=== PATIENT | female | born 1985 | race Caucasian/White ===

== ENCOUNTER 2016-07-31 20:10 | Emergency (ER) ==
[2016-07-31 20:19] VITALS: BP 167/82; TEMP 100.6; BMI 45.8
[2016-07-31 20:36] LABS: FLU INTERNAL QC INTERNAL QC VALID; RAPID FLU A NEGATIVE (NEGATIVE); RAPID FLU B NEGATIVE (NEGATIVE)
--- NOTE | 2016-07-31 20:58 | ED.PDOC ---
General ED Provider: Dr. SALINAS PASCUAL-ER Chief Complaint: Cough Stated Complaint: im coughing and my ears hurt Time Seen by Physician: 20:15 Mode of Arrival: Walk-In Information Source: Patient Exam Limitations: No limitations Primary Care Provider: VIN BARBER Nursing and Triage Documentation Reviewed and Agree: Yes Respiratory Complaint Exam - Respiratory Complaint/Exam Onset/Duration: 3 days Symptoms Are: Still present Timing: Intermittent Initial Severity: Mild Current Severity: Mild Location: Nose, Chest Character: Reports: Non-productive cough Aggravating: Reports: URI Alleviating: Reports: None Associated Signs and Symptoms: Reports: Fever, URI, Nasal congestion. Denies: Rapid breathing, Dyspnea, Chills, Chest pain, Pleuritic chest pain, Wheezing, Hemoptysis, Dizziness, Calf pain, Calf swelling, Edema, Hoarseness, Sinus discomfort, Vomiting, Sore throat, Weight loss, Decreased oral intake, Increased thirst, Increased appetite, Increased urination History of Healthcare-Acquired Pneumonia: No Related Surgical History: Reports: None Pulmonary Embolism Risk Factors: None Cardiac Risk Factors: Reports: None Pseudomonas Risk Factors: Reports: None Tuberculosis Risk Factors: Reports: None Status Asthmaticus Risk Factors: Reports: None Home Oxygen Use: No Recent Stress Test: No Recent Echo/LV Function: No Current Antibiotic Use: Yes Current Asthma Medication Use: No Respiratory Distress: None Inadequate Respiratory Effort: No Dysphagia Present: No Stridor Present: No JVD Present: No Accessory Muscle Use: No Retractions: Not Present Diminished Breath Sounds: No Sinus Tenderness: None Grunting Respirations: No Kussmaul Respirations: No Differential Diagnoses: Pneumonia, Bronchitis Review of Systems - Review Of Systems Constitutional: Reports: Fever Eyes: Reports: No symptoms Ears, Nose, Mouth, Throat: Reports: Ear pain, Nose discharge Respiratory: Reports: Cough Cardiac: Reports: No symptoms GI: Reports: No symptoms : Reports: No symptoms Musculoskeletal: Reports: No symptoms Skin: Reports: No symptoms Neurological: Reports: No symptoms Endocrine: Reports: No symptoms Hematologic/Lymphatic: Reports: No symptoms All Other Systems: Reviewed and Negative Past Medical History - Past Medical History Previously Healthy: Yes Endocrine: Reports: None Cardiovascular: Reports: None Respiratory: Reports: None Hematological: Reports: None Gastrointestinal: Reports: None Genitourinary: Reports: None Neuro/Psych: Reports: None Musculoskeletal: Reports: None Cancer: Reports: None Last Menstrual Period: 1 year ago - Surgical History General Surgical History: Reports: Hysterectomy - Family History Family History: Reports: Unknown - Social History Smoking Status: Never smoker Hx Substance Use: No Alcohol Screening: Occasionally - Immunizations Tetanus Shot up to Date: Yes Physical Exam - Physical Exam Appearance: Well-appearing, No pain distress, Well-nourished Eyes: HOENY, EOMI, Conjunctiva clear ENT: Rhinorrhea Neck: Supple Respiratory: Airway patent, Breath sounds equal, Respirations nonlabored, Rhonchi Cardiovascular: RRR, Pulses normal, No rub, No murmur GI/: Soft, Nontender, No masses, Bowel sounds normal, No Organomegaly Musculoskeletal: Normal strength, ROM intact, No edema, No calf tenderness Skin: Warm, Dry, Normal color Neurological: Sensation intact Psychiatric: Affect appropriate, Mood appropriate Interpretation - Radiology Interpretation Radiology Interpretation By: ED Physician Radiology Results: Negative Exam Interpreted: CXR Critical Care Note - Critical Care Note Total Time (mins): 0 Course - Course Orders, Labs, Meds: Lab Review 07/31/16 20:17 Influenza A (Rapid) Negative Influenza B (Rapid) Negative Orders Category Date Time Status MOLECULAR GROUP A STREP Stat LAB 07/31/16 20:17 Results RAPID FLU A/B Stat LAB 07/31/16 20:17 Completed STREP SCREEN Stat LAB 07/31/16 20:17 Results CXR [CHEST, 2 VIEWS PA & LAT] Stat RADS 07/31/16 20:41 Taken Vital Signs: Temp Pulse Resp BP Pulse Ox 07/31/16 20:12 100.6 F H 92 H 20 167/82 H 99 Departure - Departure Time of Disposition: 20:58 Disposition: HOME SELF-CARE Discharge Problem: Bronchitis Otitis media Qualifiers: Otitis media type: unspecified Laterality: unspecified laterality Chronicity: acute Qualifier Code: (H66.90) Otitis media, unspecified, unspecified ear Instructions: Acute Bronchitis (ED) Condition: Good Pt referred to PMD for follow-up: Yes Additional Instructions: stop zithromax --augmentin 875mg bid x 10 days--medrol dose pack--fluids--rest - -recheck in 72hrs if not better Allergies/Adverse Reactions: Allergies promethazine [From Phenergan] Adverse Reaction (Verified 07/31/16 20:19) hallucinations Home Medications: Ambulatory Orders Azithromycin [Zithromax] 250 mg PO DAILY 07/31/16 Disposition Discussed With: Patient
--- NOTE | 2016-07-31 21:02 | DI ---
EXAM: Two views of the chest. History: Cough. Comparison: Chest radiograph 07/03/2014 Findings: Normal heart size. No focal consolidation. No appreciable pleural fluid and no pneumoth orax. No acute osseous abnormalities. Impression: No acute cardiopulmonary process.
== END 2016-07-31 21:05 | disposition home or self-care (01) ==
LOC: ED 20:10
DX: J20.9 Acute bronchitis, unspecified (principal); H66.90 Otitis media, unspecified, unspecified ear
CPT/HCPCS: 87651; 87804; 87880; 99283

== ENCOUNTER 2016-08-11 00:01 | Emergency (ER) ==
[2016-08-11 00:13] VITALS: BP 149/94; TEMP 99.6; BMI 45.3
--- NOTE | 2016-08-11 00:45 | DI ---
Exam: Left ankle 3 views History: Injury and pain Findings/Impression: No significant kirt or articular abnormality. Negative exam.
--- NOTE | 2016-08-11 00:46 | DI ---
EXAM: AP and lateral views left tibia and fibula. HISTORY: Injury. FINDINGS: The bony structures are intact with no evidence of fracture. The joint spaces are mainta ined. No soft tissue abnormality. Impression: Negative left tibia and fibula.
--- NOTE | 2016-08-11 00:47 | DI ---
Exam: Left knee four views History: Fall with injury and pain Findings / impression: No acute bony or articular abnormalities are seen. Tiny bony density latera l to the head of the fibula likely represents a calcific tendinosis. Negative exam otherwise.
--- NOTE | 2016-08-11 00:48 | DI ---
EXAM: AP and lateral views of the left femur. HISTORY: Fall. FINDINGS: The left femur is intact with no evidence of fracture. The joint spaces are maintained. No soft tissue abnormality. Impression: Negative left femur.
--- NOTE | 2016-08-11 00:49 | DI ---
Exam: Pelvis one-view and bilateral hips two-view History: Left hip pain Findings / impression: Pelvic ring is intact. No bony or articular abnormalities of the bony pelvi s. Femoral hips show no acute bony or articular abnormalities. No bony abnormalities of the acetab ulum. Negative exam.
[2016-08-11] MEDS ORDERED: NORCO 5-325 PO STA (01:08)
--- NOTE | 2016-08-11 01:10 | ED.PDOC ---
General ED Provider: Dr. SALINAS PASCUAL-ER Chief Complaint: Fall Stated Complaint: i fell at home..im hurting Time Seen by Physician: 01:08 Mode of Arrival: Walk-In Information Source: Patient Exam Limitations: No limitations Primary Care Provider: VIN BARBER Nursing and Triage Documentation Reviewed and Agree: Yes Musculoskeletal Complaint Exam - Lower Extremity Complaint/Exam Location of Pain: Reports: Left, Ankle, Leg, Knee, Thigh, Hip Mechanism of Injury: Reports: Trauma Onset/Duration: one hour Symptoms Are: Still present Onset of Pain: Reports: Immediate Initial Severity: Mild Current Severity: Mild Location: Reports: Discrete Character: Reports: Dull, Aching Aggravating: Reports: Movement, Weight bearing Able to Bear Weight: No Associated Signs and Symptoms: Denies: Swelling, Redness, Bruising, Fever, Weakness, Numbness, Tingling DVT Risk Factors: Reports: None Septic Arthritis Risk Factors: Reports: None Related Surgical History: Reports: None Lower Extremity Findings: Present: Tenderness NV Bundle Intact Distal to Injury: No Compartment Syndrome Risk Factors: Present: Pain Jeremias's Sign Present: No Review of Systems - Review Of Systems Constitutional: Reports: No symptoms Eyes: Reports: No symptoms Ears, Nose, Mouth, Throat: Reports: No symptoms Respiratory: Reports: No symptoms Cardiac: Reports: No symptoms GI: Reports: No symptoms : Reports: No symptoms Musculoskeletal: Reports: Muscle pain Skin: Reports: No symptoms Neurological: Reports: No symptoms Endocrine: Reports: No symptoms Hematologic/Lymphatic: Reports: No symptoms All Other Systems: Reviewed and Negative Past Medical History - Past Medical History Previously Healthy: Yes Endocrine: Reports: None Cardiovascular: Reports: None Respiratory: Reports: None Hematological: Reports: None Gastrointestinal: Reports: None Genitourinary: Reports: None Neuro/Psych: Reports: None Musculoskeletal: Reports: None Cancer: Reports: None Last Menstrual Period: 2014 - Surgical History General Surgical History: Reports: Hysterectomy - Family History Family History: Reports: Unknown - Social History Smoking Status: Never smoker Hx Substance Use: No Alcohol Screening: Occasionally Lives: With family - Immunizations Tetanus Shot up to Date: Yes Physical Exam - Physical Exam Appearance: Well-appearing, No pain distress, Well-nourished Pain Distress: Mild Eyes: HONEY ENT: Ears normal Neck: Supple Respiratory: Airway patent Cardiovascular: RRR GI/: Soft, Nontender, No masses, Bowel sounds normal, No Organomegaly Musculoskeletal: Normal strength, ROM intact, No edema, No calf tenderness Skin: Warm, Dry, Normal color Neurological: Sensation intact, Motor intact, Reflexes intact, Cranial nerves intact, Alert, Oriented Psychiatric: Affect appropriate Interpretation - Radiology Interpretation Radiology Interpretation By: Radiologist Radiology Results: Negative Critical Care Note - Critical Care Note Total Time (mins): 0 Course - Course Orders, Labs, Meds: Orders Category Date Time Status ED CRUTCHES .ONCE EMERGENCY 08/11/16 01:08 Ordered Hydrocodone Bit/Acetaminophen [[place] 5-325] MEDS 08/11/16 01:08 Stat 1 tab PO ONCE STA ANKLE, LEFT MIN 3 VIEWS Stat RADS 08/11/16 00:07 Completed FEMUR, LEFT 2 VIEWS Stat RADS 08/11/16 00:06 Completed KNEE, LEFT 4 VIEWS Stat RADS 08/11/16 00:07 Completed PELVIS & RHYS HIPS Stat RADS 08/11/16 00:06 Completed TIBIA/FIBULA, LEFT 2 VIEWS Stat RADS 08/11/16 00:07 Completed Vital Signs: Temp Pulse Resp BP Pulse Ox 08/11/16 00:07 99.6 F 84 20 149/94 H 99 Departure - Departure Time of Disposition: 01:10 Disposition: HOME SELF-CARE Discharge Problem: Leg pain Qualifiers: Laterality: left Qualifier Code: (M79.605) Pain in left leg Instructions: Leg Pain (ED) Condition: Good Pt referred to PMD for follow-up: Yes Additional Instructions: use crutches--norco 5mg q 6hrs prn pain #10--f/u with pcp Allergies/Adverse Reactions: Allergies promethazine [From Phenergan] Adverse Reaction (Verified 08/11/16 00:14) hallucinations Home Medications: Ambulatory Orders 1 [No Reported Medications] 08/11/16 Disposition Discussed With: Patient, Family
== END 2016-08-11 01:25 | disposition home or self-care (01) ==
LOC: ED 00:01
DX: M79.605 Pain in left leg (principal); M25.562 Pain in left knee; M25.552 Pain in left hip; M25.572 Pain in left ankle and joints of left foot; W19.XXXA Unspecified fall, initial encounter
CPT/HCPCS: 99283

== ENCOUNTER 2016-08-22 23:22 | Emergency (ER) ==
[2016-08-22 23:23] VITALS: BMI 45.3
[2016-08-22 23:31] VITALS: TEMP 98.4
[2016-08-22] MEDS ORDERED: STADOL IM STA (23:36)
[2016-08-22] MEDS ORDERED: NORFLEX IM STA (23:36)
[2016-08-22] MEDS ORDERED: TORADOL IM STA (23:36)
--- NOTE | 2016-08-23 00:08 | CT ---
EXAM: CT head without contrast. HISTORY: Headache. PROCEDURE: Contiguous axial CT images of the head without contrast. FINDINGS: The ventricles and basal cisterns are normal in size and configuration. No evidence of ma ss or midline shift. No intracranial hemorrhage or evidence of large vessel infarct. No extra-axia l fluid collection. The paranasal sinuses and mastoid air cells are well-aerated. Impression: Negative CT of the head.
--- NOTE | 2016-08-23 00:12 | CT ---
EXAM: CT of the cervical spine without contrast. HISTORY: Neck pain. PROCEDURE: Contiguous axial CT images of the cervical spine without contrast with coronal and sagit brenden reformats. FINDINGS: There is normal alignment of the cervical vertebral bodies and facets. The vertebral body heights and intervertebral disc spaces are maintained. There are anterior osteophytes at multiple l evels of the cervical spine. No evidence of fracture. The C1-2 relationship is maintained. No prev ertebral soft tissue abnormalities. Impression: Normal alignment of the cervical spine with degenerative changes as described.
--- NOTE | 2016-08-23 00:25 | ED.PDOC ---
[id number]: my neck hurts Time Seen by Physician: 23:25 Mode of Arrival: Walk-In Information Source: Patient, Family Exam Limitations: No limitations Nursing and Triage Documentation Reviewed and Agree: Yes Musculoskeletal Complaint Exam - Neck Pain Complaint/Exam Mechanism of Injury: Reports: No known trauma Onset/Duration: 3 dasy Symptoms Are: Still present Timing: Intermittent Initial Severity: Mild Current Severity: Moderate Location: Reports: Discrete Character: Reports: Dull, Aching Aggravating: Reports: None Alleviating: Reports: None Associated Signs and Symptoms: Denies: Swelling, Redness, Bruising, Fever, Nuchal rigidity, Weakness, Headache, Paresthesia Meningitis Risk Factors: Reports: None Cervical Spine Injury Risk Factors: Reports: None Carotid Bruit Present: No Pain on Passive Flexion: No Positive Kernig's Sign: No ROM Limited In: Present: Flexion Pain Located at: posterior neck Tenderness: Present: Midline Focal Weakness: Present: None Focal Sensory Loss: Reports: None Differential Diagnoses: Cervical Fracture, Dystonia, Torticollis Review of Systems - Review Of Systems Constitutional: Reports: No symptoms Eyes: Reports: No symptoms Ears, Nose, Mouth, Throat: Reports: No symptoms, Throat swelling Respiratory: Reports: No symptoms Cardiac: Reports: No symptoms GI: Reports: No symptoms : Reports: No symptoms Musculoskeletal: Reports: Neck pain Skin: Reports: No symptoms Neurological: Reports: No symptoms Endocrine: Reports: No symptoms Hematologic/Lymphatic: Reports: No symptoms All Other Systems: Reviewed and Negative Past Medical History - Past Medical History Previously Healthy: Yes Endocrine: Reports: None Cardiovascular: Reports: None Respiratory: Reports: None Hematological: Reports: None Gastrointestinal: Reports: None Genitourinary: Reports: None Neuro/Psych: Reports: None Musculoskeletal: Reports: None Cancer: Reports: None Last Menstrual Period: na - Surgical History General Surgical History: Reports: Hysterectomy - Family History Family History: Reports: Unknown - Social History Smoking Status: Never smoker Hx Substance Use: No Alcohol Screening: Occasionally Lives: With family - Immunizations Tetanus Shot up to Date: Yes Physical Exam - Physical Exam Appearance: Well-appearing Pain Distress: Moderate Eyes: HONEY, EOMI, Conjunctiva clear ENT: Ears normal Neck: Supple Respiratory: Airway patent, Breath sounds clear, Breath sounds equal, Respirations nonlabored Cardiovascular: RRR, Pulses normal, No rub, No murmur GI/: Soft, Nontender, No masses, Bowel sounds normal, No Organomegaly Musculoskeletal: Normal strength Skin: Warm, Dry, Normal color Neurological: Sensation intact, Motor intact, Reflexes intact, Cranial nerves intact, Alert, Oriented Psychiatric: Affect appropriate Interpretation - Radiology Interpretation Radiology Interpretation By: Radiologist Radiology Results: Negative Exam Interpreted: CT Scan Re-Evaluation - Re-Evaluation Time of Re-Evaluation: 00:31 Status: Improved Vital Signs Stable: Yes (bp 155/67) Pain Level: 1 Appearance: NAD Lungs: Clear Skin: Warm and Dry Neuro: Alert and Oriented X3 CV: RRR Critical Care Note - Critical Care Note Total Time (mins): 0 Course - Course Orders, Labs, Meds: Orders Category Date Time Status Butorphanol Tartrate [Stadol] MEDS 08/22/16 23:36 Discontinued 2 mg IM ONCE STA Ketorolac Tromethamine [Toradol] MEDS 08/22/16 23:36 Discontinued 60 mg IM ONCE STA Orphenadrine Citrate [Norflex] MEDS 08/22/16 23:36 Discontinued 60 mg IM ONCE STA CT CERVICAL SPINE W/O CONTRAST Stat RADS 08/22/16 23:[address] HEAD W/O CONTRAST Stat RADS 08/22/16 23:37 Completed Medications Discontinued Medications Generic Name Dose Route Start Last Admin Trade Name Freq PRN Reason Stop Dose Admin Butorphanol Tartrate 2 mg 08/22/16 23:36 08/22/16 23:59 Stadol IM 08/22/16 23:37 2 mg ONCE STA Administration Ketorolac Tromethamine 60 mg 08/22/16 23:36 08/22/16 23:56 Toradol IM 08/22/16 23:37 60 mg ONCE STA Administration Orphenadrine Citrate 60 mg 08/22/16 23:36 08/23/16 00:02 Norflex IM 08/22/16 23:37 60 mg ONCE STA Administration Vital Signs: Temp Pulse Resp BP Pulse Ox 08/23/16 00:31 155/67 H 08/22/16 23:24 98.4 F 72 20 182/64 H 98 Departure - Departure Time of Disposition: 00:25 Disposition: HOME SELF-CARE Discharge Problem: Neck pain Instructions: Neck Pain (ED) Condition: Good Pt referred to PMD for follow-up: Yes Additional Instructions: f/u with pcp--consider mri of neck Allergies/Adverse Reactions: Allergies promethazine [From Phenergan] Adverse Reaction (Verified 08/22/16 23:36) hallucinations Home Medications: Ambulatory Orders 1 [No Reported Medications] 08/11/16 Disposition Discussed With: Patient, Family
[2016-08-23 00:31] VITALS: BP 155/67
== END 2016-08-23 00:46 | disposition home or self-care (01) ==
LOC: ED 23:22
DX: M54.2 Cervicalgia (principal)
CPT/HCPCS: 96372; 99283

== ENCOUNTER 2016-08-26 01:50 | Emergency (ER) ==
[2016-08-26 01:51] VITALS: BMI 45.3
[2016-08-26 02:01] VITALS: BP 169/94; TEMP 98.6
--- NOTE | 2016-08-26 02:22 | ED.PDOC ---
General ED Provider: Dr. SALINAS PASCUAL-ER Chief Complaint: Chest Pain Mode of Arrival: Walk-In Information Source: Patient Primary Care Provider: VIN BARBER Past Medical History - Past Medical History Previously Healthy: Yes Endocrine: Reports: None Cardiovascular: Reports: None Respiratory: Reports: None Hematological: Reports: None Gastrointestinal: Reports: None Genitourinary: Reports: None Neuro/Psych: Reports: None Musculoskeletal: Reports: None Cancer: Reports: None Last Menstrual Period: 2014 - Surgical History General Surgical History: Reports: Hysterectomy - Family History Family History: Reports: Unknown - Social History Smoking Status: Never smoker Hx Substance Use: No Alcohol Screening: Occasionally - Immunizations Tetanus Shot up to Date: Yes Course - Course Orders, Labs, Meds: Orders Category Date Time Status EKG-(ED ONLY) Stat CARDIO 08/26/16 02:17 Ordered NPO REMINDER: IMAGING ONCE CARE 08/26/16 02:18 Active ED IV/MEDIPORT/POWERPORT .ONCE EMERGENCY 08/26/16 02:17 Active CBC W/ AUTO DIFF Stat LAB 08/26/16 02:16 Ordered COMPREHENSIVE METABOLIC PANEL Stat LAB 08/26/16 02:16 Ordered CREATINE KINASE Stat LAB 08/26/16 02:17 Ordered SERUM Stat LAB 08/26/16 02:17 Ordered TROPONIN I Stat LAB 08/26/16 02:17 Ordered 0.9 % Sodium Chloride [Saline Flush] MEDS 08/26/16 02:17 Ordered 1 syr IVF PRN PRN Sodium Chloride 0.9% [Sodium Chloride] 1,000 ml MEDS 08/26/16 02:17 Active IV 100 mls/hr CT CHEST PE PROTOCOL Stat RADS 08/26/16 02:17 Ordered Medications Generic Name Dose Route Start Last Admin Trade Name Freq PRN Reason Stop Dose Admin Sodium Chloride 1,000 mls @ 100 mls/hr 08/26/16 02:17 Sodium Chloride IV 08/26/16 12:16 .Q10H STA Sodium Chloride 1 syr 08/26/16 02:17 Saline Flush IVF PRN PRN To flush IV Vital Signs: Temp Pulse Resp BP Pulse Ox 08/26/16 01:52 98.6 F 74 18 169/94 H 100 Departure - Departure Allergies/Adverse Reactions: Allergies promethazine [From Phenergan] Adverse Reaction (Verified 08/26/16 02:01) hallucinations Home Medications: Ambulatory Orders Hydrocodone Bit/Acetaminophen [[place] 5-325] 5 - 325 mg PO Q4H PRN 08/26/16
[2016-08-26 02:30] LABS: BASOPHILS # (AUTO) 0.1 K/uL (0-0.2); BASOPHILS % (AUTO) 0.5 % (0.0-3.0); EOSINOPHILS # (AUTO) 0.2 K/ul (0.0-0.7); EOSINOPHILS % (AUTO) 2.6 % (0.0-7.0); HEMATOCRIT 34.9 % (37.0-47.0); IMMATURE GRANULOCYTE % (AUTO) 0.2 % (0.0-5.0); LYMPHOCYTES # (AUTO) 4.5 K/uL (0.60-3.4); LYMPHOCYTES % (AUTO) 48.1 (10.0-50.0); MEAN CORPUSCULAR HEMOGLOBIN 29.4 pg (27.0-31.0); MEAN CORPUSCULAR HGB CONC 34.4 (31.8-35.4); MEAN CORPUSCULAR VOLUME 85.5 fl (81.0-99.0); MONOCYTES # (AUTO) 0.7 K/uL (0.4-2.0); MONOCYTES % (AUTO) 7.1 (0-10); NEUTROPHILS # (AUTO) 3.9 K/ul (2.0-6.9); NEUTROPHILS % (AUTO) 41.5; PLATELET COUNT 260 10^3/uL (140-440); RED BLOOD COUNT 4.08 10^6/ul (4.20-5.40); WHITE BLOOD COUNT 9.33 K/ul (4.6-10.2)
[2016-08-26 02:50] LABS: ALBUMIN 3.5 g/dL (3.4-5.0); ALBUMIN/GLOBULIN RATIO 1.09; ANION GAP 9.6; BILIRUBIN,TOTAL 0.82 mg/dL (0.00-1.20); BUN/CREATININE RATIO 13.92; CALCIUM 9.1 mg/dL (8.2-10.2); CREATININE 0.79 mg/dL (0.60-1.30); POTASSIUM 3.6 mmol/L (3.5-5.10); TOTAL PROTEIN 6.7 g/dL (6.4-8.2)
[2016-08-26 02:56] LABS: CREATINE KINASE 51 U/L
[2016-08-26] MEDS: SODIUM CHLORIDE 1,000 ML IV STA (03:32)
--- NOTE | 2016-08-26 03:52 | CT ---
EXAM: CT angiogram chest with intravenous contrast 08/26/2016. Multi planar reformatted images obt ained. Three-dimensional reconstructed images provided HISTORY: Chest pain COMPARISON: 07/31/2016, 07/18/2012 FINDINGS: The heart size appears within normal limits. There is no pericardial effusion. The aort a shows no acute process. There are no pulmonary arterial filling defects to suggest pulmonary embolus. Minimal atelectasis. There is no focal pulmonary consolidation and no pleural effusion or pneumotho rax. Limited views of the upper abdomen show no acute process. IMPRESSION: No acute cardiopulmonary process. No evidence of pulmonary embolus. Minimal atelectasis.
--- NOTE | 2016-08-26 05:31 | ED.PDOC ---
General <WING BLACK JR - Last Filed: 08/26/16 09:36> Stated Complaint: my chest hurts Time Seen by Physician: 01:55 Mode of Arrival: Walk-In Information Source: Patient Exam Limitations: No limitations Nursing and Triage Documentation Reviewed and Agree: Yes <SALINAS RODRIGUEZ - Last Filed: 08/28/16 19:18> ED Provider: Dr. SALINAS RODRIGUEZ (WING BLACK JR) (SAMARASALINAS WHITMAN) Chief Complaint: Chest Pain Primary Care Provider: WING ROBIN JR) (SALINAS RODRIGUEZ) Cardiovascular Complaint Exam - Chest Pain Complaint/Exam Onset: Gradual Duration: several hours Symptoms Are: Still present Timing: Intermittent Initial Severity: Mild Current Severity: Mild Location: Reports: Diffuse Character: Reports: Dull, Aching, Pressure Aggravating: Reports: None Associated Signs and Symptoms: Denies: Diaphoresis, Nausea, Vomiting, Fever, Palpitations, Cough, Hemoptysis, Back pain, Abdominal pain, Dizziness, Short of air, Calf pain, Calf swelling Related History: Reports: Similar episode Related Surgical History: Reports: None History of Healthcare-Acquired Pneumonia: Reports: No AMI/ACS Risk Factors: Reports: None TAD Risk Factors: Reports: None Pulmonary Embolism Risk Factors: Reports: DVT Prior Care for this Complaint: No Recent Stress Test: No Recent Echo/LV Function: No JVD Present: No Subcutaneous Emphysema Present: No Diminshed Breath Sounds: No Reproducible Chest Wall Pain: Yes Bilateral Pulses Present: Yes Unequal Pulses Noted: No If Risk Factors for PE Consider: Chest CT with contrast If Risk Factors for TAD Consider: Chest CT with contrast Differential Diagnoses: Pulmonary Embolism Quality Indicators For Acute OH or Cardiac Chest Pain: EKG in 10min. <SALINAS RODRIGUEZ - Last Filed: 08/28/16 19:18> Review of Systems - Review Of Systems Constitutional: Reports: No symptoms Eyes: Reports: No symptoms Ears, Nose, Mouth, Throat: Reports: No symptoms Respiratory: Reports: No symptoms Cardiac: Reports: Chest pain GI: Reports: No symptoms : Reports: No symptoms Musculoskeletal: Reports: No symptoms Skin: Reports: No symptoms Neurological: Reports: No symptoms Endocrine: Reports: No symptoms Hematologic/Lymphatic: Reports: No symptoms All Other Systems: Reviewed and Negative <SALINAS RODRIGUEZ - Last Filed: 08/28/16 19:18> Past Medical History - Past Medical History Previously Healthy: Yes Endocrine: Reports: None Cardiovascular: Reports: None Respiratory: Reports: None Hematological: Reports: None Gastrointestinal: Reports: None Genitourinary: Reports: None Neuro/Psych: Reports: None Musculoskeletal: Reports: None Cancer: Reports: None Last Menstrual Period: 2014 - Surgical History General Surgical History: Reports: Hysterectomy - Family History Family History: Reports: Unknown - Social History Smoking Status: Never smoker Hx Substance Use: No Alcohol Screening: Occasionally Lives: With family - Immunizations Tetanus Shot up to Date: Yes <SALINAS RODRIGUEZ - Last Filed: 08/28/16 19:18> Physical Exam - Physical Exam Appearance: Well-appearing, No pain distress, Well-nourished Pain Distress: Mild Eyes: HONEY, EOMI, Conjunctiva clear ENT: Ears normal, Nose normal, Oropharynx normal Neck: Supple Respiratory: Airway patent, Breath sounds clear, Breath sounds equal, Respirations nonlabored Cardiovascular: RRR GI/: Soft, Nontender, No masses, Bowel sounds normal, No Organomegaly Musculoskeletal: Normal strength, ROM intact, No edema, No calf tenderness Skin: Warm, Dry, Normal color Neurological: Sensation intact Psychiatric: Affect appropriate, Mood appropriate <SALINAS RODRIGUEZ - Last Filed: 08/28/16 19:18> Interpretation - Radiology Interpretation Radiology Interpretation By: Radiologist Radiology Results: Negative Exam Interpreted: CT Scan <SALINAS RODRIGUEZ - Last Filed: 08/28/16 19:18> Physician Notification - Case Discussed Physician Notified: dr [email or web address] Time of Notification: 07:00 <SALINAS RODRIGUEZ - Last Filed: 08/28/16 19:18> Critical Care Note - Critical Care Note Total Time (mins): 0 <SALINAS RODRIGUEZ - Last Filed: 08/28/16 19:18> Course - Course Hematology/Chemistry: 08/26/16 02:20 08/26/16 02:20 <WING BLACK JR - Last Filed: 08/26/16 09:36> - Course Hematology/Chemistry: 08/26/16 02:20 08/26/16 02:20 <SALINAS RODRIGUEZ - Last Filed: 08/28/16 19:18> - Course Orders, Labs, Meds: Lab Review 08/26/16 02:20 WBC 9.33 RBC 4.08 L Hgb 12.0 Hct 34.9 L MCV 85.5 MCH 29.4 MCHC 34.4 RDW Coeff of Chayo 13.2 Plt Count 260 Immature Gran % (Auto) 0.2 Neut % (Auto) 41.5 Lymph % (Auto) 48.1 [place] % (Auto) 7.1 Eos % (Auto) 2.6 Baso % (Auto) 0.5 Immature Gran # (Auto) 0.0 Neut # 3.9 Lymph # 4.5 H [place] # 0.7 Eos # 0.2 Baso # 0.1 Sodium 140 Potassium 3.6 Chloride 106 Carbon Dioxide 28 Anion Gap 9.6 BUN 11 Creatinine 0.79 Estimated GFR (MDRD) 84.00 BUN/Creatinine Ratio 13.92 Glucose 132 H Calcium 9.1 Total Bilirubin 0.82 AST 17 ALT 19 Alkaline Phosphatase 46 Total Creatine Kinase 51 Troponin I < 0.0100 Total Protein 6.7 Albumin 3.5 Globulin 3.2 Albumin/Globulin Ratio 1.09 Orders Category Date Time Status EKG-(ED ONLY) Stat CARDIO 08/26/16 02:17 Completed NPO REMINDER: IMAGING ONCE CARE 08/26/16 02:18 Completed ED IV/MEDIPORT/POWERPORT .ONCE EMERGENCY 08/26/16 02:17 Active CBC W/ AUTO DIFF Stat LAB 08/26/16 02:20 Completed COMPREHENSIVE METABOLIC PANEL Stat LAB 08/26/16 02:20 Completed CREATINE KINASE Stat LAB 08/26/16 02:20 Completed TROPONIN I Stat LAB 08/26/16 02:20 Completed 0.9 % Sodium Chloride [Saline Flush] MEDS 08/26/16 02:17 Discontinued 1 syr IVF PRN PRN Sodium Chloride 0.9% [Sodium Chloride] 1,000 ml MEDS 08/26/16 02:17 Discontinued IV 100 mls/hr CT CHEST PE PROTOCOL Stat RADS 08/26/16 02:17 Completed ULTRASOUND VENOUS SCAN LT. LEG [U/S VENOUS SCAN LT. LEG RADS 08/26/16 07:00 Completed ] Medications Discontinued Medications Generic Name Dose Route Start Last Admin Trade Name Freq PRN Reason Stop Dose Admin Sodium Chloride 1,000 mls @ 100 mls/hr 08/26/16 02:17 08/26/16 03:32 Sodium Chloride IV 08/26/16 12:16 100 mls/hr .Q10H STA Administration Sodium Chloride 1 syr 08/26/16 02:17 Saline Flush IVF PRN PRN To flush IV (WING BLACK JR) (SALINAS RODRIGUEZ) Vital Signs: Temp Pulse Resp BP Pulse Ox 08/26/16 01:52 98.6 F 74 18 169/94 H 100 (WING BLACK JR) (SALINAS RODRIGUEZ) Departure - Departure Time of Disposition: 08:56 Pt referred to PMD for follow-up: Yes <WING BLACK JR - Last Filed: 08/26/16 09:36> - Departure Pt referred to PMD for follow-up: Yes Disposition Discussed With: Patient <SALINAS RODRIGUEZ - Last Filed: 08/28/16 19:18> - Departure Disposition: HOME SELF-CARE Discharge Problem: Chest pain, Reflux esophagitis DVT of lower extremity (deep venous thrombosis) Qualifiers: Affected thrombotic vein of extremity: unspecified lower extremity distal vein Laterality: left Chronicity: unspecified Qualifier Code: (I82.4Z2) Acute embolism and thrombosis of unspecified deep veins of left distal lower extremity Instructions: Gastroesophageal Reflux Disease (ED), Deep Venous Thrombosis (ED) Condition: Good Additional Instructions: TAKE ASPIRIN 81MG ONCE A DAY DISCUSS ANTICOAGULATION WITH PMD- NOT BEGUN - NO CLOT ON TESTING TODAY RECHECK PMD ONE WEEK OR SOONER RETURN IF SHORT OF BREATH OR FEVER OVER 101.0 ELEVATE LEG 2 HOURS TWICE A DAY MAY USE WARM PACKS TO TENDER AREAS MAY USE TYLENOL 650MG FOUR TIMES A DAY FOR PAIN(NO MOTE THAN 4000 MG PER 24 HOURS) MAY USE NORCO IF HELPFUL INCREASE FLUIDS BY SIX CUPS A DAY FOR THREE DAYS Allergies/Adverse Reactions: Allergies promethazine [From Phenergan] Adverse Reaction (Verified 08/26/16 02:01) hallucinations Home Medications: Ambulatory Orders Hydrocodone Bit/Acetaminophen [[place] 5-325] 5 - 325 mg PO Q4H PRN 08/26/16
--- NOTE | 2016-08-26 08:06 | US ---
EXAM: Ultrasound venous Doppler unilateral lower extremity HISTORY: Leg pain, tenderness, swelling COMPARISON: None TECHNIQUE: Venous duplex ultrasound of the left lower extremity was performed using color, bonilla-sca le, and Doppler flow imaging. FINDINGS: There is normal color flow and bonilla scale appearance of the left common femoral, greater saphenous, profunda femoral, femoral, popliteal, peroneal, posterior tibial, and anterior tibial vei ns without evidence of intraluminal thrombus. Compression and augmentation is normal. No reflux is identified. IMPRESSION: No left lower extremity deep venous thrombosis.
== END 2016-08-26 09:20 | disposition home or self-care (01) ==
LOC: ED 01:50
DX: R07.9 Chest pain, unspecified (principal); K21.0 Gastro-esophageal reflux disease with esophagitis; I82.4Z2 Acute embolism and thrombosis of unspecified deep veins of left distal lower extremity
CPT/HCPCS: 36415; 80053; 82550; 84484; 85025; 93005; 93010; 96360; 96361; 99283

== ENCOUNTER 2016-09-01 11:27 | Outpatient (CLI) | END 2016-09-01 11:28 | disposition home or self-care (01) | LOC: LAB 11:27 | PROVIDERS: ATTEND Nurse Practitioner Family | DX: I10 Essential (primary) hypertension (principal) | CPT/HCPCS: 36415; 83880 ==

== ENCOUNTER 2017-01-02 22:09 | Emergency (ER) ==
[2017-01-02 22:18] VITALS: BP 171/99; TEMP 100; BMI 45.9
[2017-01-02 22:41] LABS: BASOPHILS # (AUTO) 0.1 K/uL (0-0.2); BASOPHILS % (AUTO) 0.5 % (0.0-3.0); EOSINOPHILS # (AUTO) 0.1 K/ul (0.0-0.7); EOSINOPHILS % (AUTO) 1.4 % (0.0-7.0); HEMATOCRIT 36.4 % (37.0-47.0); HEMOGLOBIN 12.2 g/dl (12.0-16.0); IMMATURE GRANULOCYTE % (AUTO) 0.2 % (0.0-5.0); LYMPHOCYTES # (AUTO) 3.5 K/uL (0.60-3.4); LYMPHOCYTES % (AUTO) 34.5 (10.0-50.0); MEAN CORPUSCULAR HEMOGLOBIN 28.6 pg (27.0-31.0); MEAN CORPUSCULAR HGB CONC 33.5 (31.8-35.4); MEAN CORPUSCULAR VOLUME 85.2 fl (81.0-99.0); MONOCYTES # (AUTO) 0.6 K/uL (0.4-2.0); MONOCYTES % (AUTO) 5.9 (0-10); NEUTROPHILS # (AUTO) 5.8 K/ul (2.0-6.9); NEUTROPHILS % (AUTO) 57.5; PLATELET COUNT 261 10^3/uL (140-440); RED BLOOD COUNT 4.27 10^6/ul (4.20-5.40); WHITE BLOOD COUNT 10.09 K/ul (4.6-10.2)
[2017-01-02 22:44] LABS: BILIRUBIN,URINE Negative (NEGATIVE); KETONES,URINE Trace (NEGATIVE); LEUKOCYTE ESTERASE ,URINE Negative (NEGATIVE); NITRITE,URINE Negative (NEGATIVE); PH,URINE 6.5 (5-9); PROTEIN,URINE Negative (NEGATIVE); URINE, BLOOD Trace-intact (NEGATIVE)
[2017-01-02 22:46] LABS: URINE PREGNANCY INTERNAL QC INTERNAL QC VALID
[2017-01-02 22:48] LABS: ADD URINE MICROSCOPIC YES
[2017-01-02 23:00] LABS: ALBUMIN 3.6 g/dL (3.4-5.0); ALBUMIN/GLOBULIN RATIO 1.09; ANION GAP 14.7; BILIRUBIN,TOTAL 0.74 mg/dL (0.00-1.20); BUN/CREATININE RATIO 15.27; CALCIUM 9.5 mg/dL (8.2-10.2); CREATININE 0.72 mg/dL (0.60-1.30); POTASSIUM 3.7 mmol/L (3.5-5.10); TOTAL PROTEIN 6.9 g/dL (6.4-8.2)
--- NOTE | 2017-01-02 23:20 | CT ---
Exam: CT of the abdomen and pelvis without contrast History: Right flank pain and fever Technique: [address] of the abdomen and pelvis without intravascular contrast FINDINGS: The lung bases are clear. No significant liver abnormality. The adrenals, pancreas and sp mouna are unremarkable. The stomach and hiatus are unremarkable.The gallbladder is not seen. Single 3 mm nonobstructing calculus in the left kidney. The kidneys and collecting system are unremarkable otherwise. The appendix is not seen. Bowel loops demonstrate normal caliber. No inflamatory change seen in the mesentery or retroperitoneum. Scattered colonic diverticulosis. Vascular structures ap pear normal by noncontrast CT. Prior hysterectomy. No inflammation of the pelvic fat. Normal urinary bladder. Normal pelvic mielda l loops. No acute findings of the skeleton. Small fatty umbilical hernia without complication. Impression: 1. No inflammatory process, bowel or urinary obstruction is seen. 2. Single nonobstructing calculus in the left kidney 3. Prior hysterectomy
[2017-01-02] MEDS ORDERED: SODIUM CHLORIDE 1,000 ML IV STA (23:34)
[2017-01-03 00:11] LABS: ERYTHROCYTE SEDIMENTATION RATE 35 mm/hr (0-20); ESR INTERNAL QC INTERNAL QC VALID
[2017-01-03] MEDS ORDERED: ZOFRAN 4 MG/2 ML IVP STA (00:34)
--- NOTE | 2017-01-03 01:19 | ED.PDOC ---
General ED Provider: Dr. SALINAS PASCUAL-ER Chief Complaint: Back Pain Stated Complaint: iit hurts in my flank Time Seen by Physician: 22:15 Mode of Arrival: Walk-In Information Source: Patient, Family Exam Limitations: No limitations Primary Care Provider: VIN BARBER Nursing and Triage Documentation Reviewed and Agree: Yes GI Complaint Exam - Abdominal Pain Complaint/Exam Onset: Gradual Duration: several hours Symptoms Are: Still present Timing: Intermittent Initial Severity: Mild Current Severity: Mild Location of Pain: Discrete, RLQ Radiates To: Reports: Flank Character: Reports: Dull, Aching, Cramping Aggravating: Reports: None Alleviating: Reports: None Associated Signs and Symptoms: Denies: Diaphoresis, Fever, Cough, Chest pain, Dizziness, Back pain, Constipation, Blood in stool, Dysuria, Urinary frequency, Decreased urine output, Decreased appetite, Vaginal bleeding, Vaginal discharge , Nausea, Vomiting, Diarrhea, Sore throat, Decreased activity AAA Risk Factors: Reports: None Cardiac Risk Factors: Reports: None Ovarian Torsion Risk Factors: Reports: Hysterectomy Surgical Obstruction Risk Factors: Reports: None Related Surgical History: Reports: Cholecystectomy Patient Rh Status: Unknown Abdominal Findings: Present: None Differential Diagnoses: Appendicitis, Ureteral Stone, PUD, UTI Review of Systems - Review Of Systems Constitutional: Reports: No symptoms Eyes: Reports: No symptoms Ears, Nose, Mouth, Throat: Reports: No symptoms Respiratory: Reports: No symptoms Cardiac: Reports: No symptoms GI: Reports: Abdominal pain, Nausea : Reports: Dysuria, Flank pain Musculoskeletal: Reports: No symptoms Skin: Reports: No symptoms Neurological: Reports: No symptoms Endocrine: Reports: No symptoms Hematologic/Lymphatic: Reports: No symptoms All Other Systems: Reviewed and Negative Past Medical History - Past Medical History Previously Healthy: Yes Endocrine: Reports: None Cardiovascular: Reports: None Respiratory: Reports: None Hematological: Reports: None Gastrointestinal: Reports: None Genitourinary: Reports: None Neuro/Psych: Reports: None Musculoskeletal: Reports: None Cancer: Reports: None Last Menstrual Period: PT HAS HAD A HYSTERECTOMY - Surgical History General Surgical History: Reports: Hysterectomy - Family History Family History: Reports: Unknown - Social History Smoking Status: Never smoker Hx Substance Use: No Alcohol Screening: Occasionally Lives: With family - Immunizations Tetanus Shot up to Date: Yes Physical Exam - Physical Exam Appearance: Well-appearing, No pain distress, Well-nourished Pain Distress: Mild Eyes: HONEY, EOMI, Conjunctiva clear ENT: Ears normal, Nose normal, Oropharynx normal Neck: Supple Respiratory: Airway patent Cardiovascular: RRR, Pulses normal, No rub, No murmur GI/: Soft Musculoskeletal: Normal strength Skin: Warm, Dry, Normal color Neurological: Sensation intact, Motor intact, Reflexes intact, Cranial nerves intact, Alert, Oriented Psychiatric: Affect appropriate, Mood appropriate Interpretation - Radiology Interpretation Radiology Interpretation By: Radiologist Radiology Results: Negative Exam Interpreted: CT Scan Critical Care Note - Critical Care Note Total Time (mins): 0 Course - Course Hematology/Chemistry: 01/02/17 22:40 01/02/17 22:40 Orders, Labs, Meds: Lab Review 01/02/17 01/02/17 01/02/17 22:25 22:35 22:40 WBC 10.09 RBC 4.27 Hgb 12.2 Hct 36.4 L MCV 85.2 MCH 28.6 MCHC 33.5 RDW Coeff of Chayo 13.0 Plt Count 261 Immature Gran % (Auto) 0.2 Neut % (Auto) 57.5 Lymph % (Auto) 34.5 [place] % (Auto) 5.9 Eos % (Auto) 1.4 Baso % (Auto) 0.5 Immature Gran # (Auto) 0.0 Neut # 5.8 Lymph # 3.5 H [place] # 0.6 Eos # 0.1 Baso # 0.1 ESR 35 H Sodium 140 Potassium 3.7 Chloride 104 Carbon Dioxide 25 Anion Gap 14.7 BUN 11 Creatinine 0.72 Estimated GFR (MDRD) 93.00 BUN/Creatinine Ratio 15.27 Glucose 129 H Calcium 9.5 Total Bilirubin 0.74 AST 14 L ALT 14 Alkaline Phosphatase 47 Total Protein 6.9 Albumin 3.6 Globulin 3.3 Albumin/Globulin Ratio 1.09 Urine Color Yellow Urine Clarity Clear Urine pH 6.5 Ur Specific [employer] 1.025 Urine Protein Negative Urine Glucose (UA) Negative Urine Ketones Trace Urine Blood Trace-intact Urine Nitrite Negative Urine Bilirubin Negative Urine Urobilinogen 2.0 Ur Leukocyte Esterase Negative Urine Microscopic RBC 0-2 Ur Squamous Epith Cells 5-10 Urine Test Negative Orders Category Date Time Status NPO REMINDER: IMAGING ONCE CARE 01/02/17 23:35 Completed NPO REMINDER: IMAGING ONCE CARE 01/03/17 00:35 Completed ED IV/MEDIPORT/POWERPORT .ONCE EMERGENCY 01/02/17 23:34 Active BLOOD CULTURE Stat LAB 01/02/17 22:40 Received CBC W/ AUTO DIFF Stat LAB 01/02/17 22:40 Completed COMPREHENSIVE METABOLIC PANEL Stat LAB 01/02/17 22:40 Completed ESR Stat LAB 01/02/17 22:35 Completed URINALYSIS C & S IF INDICATED Stat LAB 01/02/17 22:25 Completed URINE Stat LAB 01/02/17 22:25 Completed 0.9 % Sodium Chloride [Saline Flush] MEDS 01/02/17 23:34 Ordered 1 syr IVF PRN PRN Ondansetron HCl/Pf [Zofran 4 mg/2 ml] MEDS 01/03/17 00:34 Discontinued 4 mg IVP ONCE STA Sodium Chloride 0.9% [Sodium Chloride] 1,000 ml MEDS 01/02/17 23:34 Active IV 100 mls/hr CT ABDOMEN/PELVIS W CONTRAST Stat RADS 01/03/17 00:[address] ABDOMEN/PELVIS WO CONTRAST Stat RADS 01/02/17 22:27 Completed Medications Generic Name Dose Route Start Last Admin Trade Name Freq PRN Reason Stop Dose Admin Sodium Chloride 1,000 mls @ 100 mls/hr 01/02/17 23:34 01/03/17 01:09 Sodium Chloride IV 01/03/17 09:33 Not Given .Q10H STA Sodium Chloride 1 syr 01/02/17 23:34 Saline Flush IVF PRN PRN To flush IV Discontinued Medications Generic Name Dose Route Start Last Admin Trade Name Freq PRN Reason Stop Dose Admin Ondansetron HCl 4 mg 01/03/17 00:34 01/03/17 01:08 Zofran 4 Mg/2 Ml IVP 01/03/17 00:35 Not Given ONCE STA with the elevated sed rate--we wanted to perform ct wtih contrast but she refused and decided to leave ama--she is warned delay in dx could result in harm and even but the declined ct with contrast Vital Signs: Temp Pulse Resp BP Pulse Ox 01/02/17 22:10 100 F H 81 18 171/99 H 100 Departure - Departure Time of Disposition: 01:20 Disposition: AMA Discharge Problem: Flank pain Instructions: Flank Pain (ED) Condition: Good Pt referred to PMD for follow-up: Yes Additional Instructions: YOU ARE SIGNING OUT AGAINST MEDICAL ADVICE. RISK VS. BENEFITS HAVE BEEN EXPLAINED TO YOU AND YOU HAVE CHOSEN TO LEAVE. FOLLOW UP WITH PRIMARY CARE PROVIDER. Allergies/Adverse Reactions: Allergies promethazine [From Phenergan] Adverse Reaction (Verified 01/02/17 22:18) hallucinations Home Medications: Ambulatory Orders Aspirin [Low Dose Aspirin Ec] 81 mg PO DAILY 08/31/16 Disposition Discussed With: Patient
== END 2017-01-03 01:05 | disposition left against medical advice (07) ==
LOC: ED 22:09
DX: R10.31 Right lower quadrant pain (principal)
CPT/HCPCS: 36415; 80053; 81001; 81025; 85025; 85651; 87040; 99284

== ENCOUNTER 2017-06-04 21:15 | Emergency (ER) ==
--- NOTE | 2017-06-04 21:21 | ED.PDOC ---
General ED Provider: Dr. SALINAS PASCUAL-ER Chief Complaint: Tooth Problem Stated Complaint: my tooth hurts and the gums hurt and swollen Time Seen by Physician: 21:20 Mode of Arrival: Walk-In Information Source: Patient Exam Limitations: No limitations Nursing and Triage Documentation Reviewed and Agree: Yes Reviewed sepsis parameters & appropriate labs ordered?: Yes System Inflammatory Response Syndrome: Not Applicable Sepsis Protocol: For patient's 13 years and over: Temp is 96.8 and below OR 101 and greater Pulse >90 BPM Resp >20/minute Acutely Altered Mental Status Are patient's symptoms suggestive of a new infection, such as: -Pneumonia -Skin, Soft Tissue -Endocarditis -UTI -Bone, Joint Infection -Implantable Device -Acute Abdominal Infection -Wound Infection -Meningitis -Blood Stream Catheter Infection -Unknown EENT Complaint Exam - Dental/Oral Complaint/Exam Mechanism of Injury: No known trauma Onset/Duration: several hours Symptoms Are: Still present Timing: Constant Initial Severity: Mild Current Severity: Moderate Location: right upper premolar Character: Reports: Dull, Aching, Throbbing Aggravating: Reports: Heat, Cold, Chewing Associated Signs and Symptoms: Reports: Swelling. Denies: Discharge, Fever, Foul odor, Foul taste in mouth Related History: Reports: Similar episode, Previous tooth problem Tooth Findings: Present: Percussion tenderness, Abcess Cervical Lymphadenopathy Present: No Facial Swelling Present: No Bleeding Present: No Septal Hematoma: No Foreign Body Present: No Dysphagia Present: No Drooling Present: No Asymmetrical Tonsillar Swelling Present: No Uvula Midline: Yes Vida-tonsillar Fluctuence: No Trismus Present: No Palatal Petechiae Present: No Scarlatinaform Rash Present: No Differential Diagnoses: Dental Abcess, Dental Caries, Gingivitis, Odontogenic Pain Review of Systems - Review Of Systems Constitutional: Reports: No symptoms Eyes: Reports: No symptoms Ears, Nose, Mouth, Throat: Reports: Mouth pain Respiratory: Reports: No symptoms Cardiac: Reports: No symptoms GI: Reports: No symptoms : Reports: No symptoms Musculoskeletal: Reports: No symptoms Skin: Reports: No symptoms Neurological: Reports: No symptoms Endocrine: Reports: No symptoms Hematologic/Lymphatic: Reports: No symptoms All Other Systems: Reviewed and Negative Past Medical History - Past Medical History Previously Healthy: Yes Endocrine: Reports: None Cardiovascular: Reports: None Respiratory: Reports: None Hematological: Reports: None Gastrointestinal: Reports: None Genitourinary: Reports: None Neuro/Psych: Reports: None Musculoskeletal: Reports: None Cancer: Reports: None - Surgical History General Surgical History: Reports: Hysterectomy - Family History Family History: Reports: Unknown - Social History Smoking Status: Never smoker Hx Substance Use: No Alcohol Screening: Occasionally Lives: With family Physical Exam - Physical Exam Appearance: Well-appearing, No pain distress, Well-nourished Pain Distress: Mild Eyes: HONEY, EOMI, Conjunctiva clear ENT: Ears normal, Nose normal, Oropharynx normal, Erythema (noted right upper premolar is tender to palpation and gum is swollen) Neck: Supple Respiratory: Airway patent, Breath sounds clear, Breath sounds equal, Respirations nonlabored Cardiovascular: RRR, Pulses normal, No rub, No murmur GI/: Soft, Nontender, No masses, Bowel sounds normal, No Organomegaly Musculoskeletal: Normal strength, ROM intact, No edema, No calf tenderness Skin: Warm Neurological: Sensation intact, Motor intact, Reflexes intact, Cranial nerves intact, Alert, Oriented Psychiatric: Affect appropriate, Mood appropriate Critical Care Note - Critical Care Note Total Time (mins): 0 Departure - Departure Time of Disposition: 21:22 Disposition: HOME SELF-CARE Discharge Problem: Toothache Instructions: Dental Abscess (ED) Condition: Good Pt referred to PMD for follow-up: Yes Additional Instructions: augmentin 500mg bid x 7 days--norco 5mg q 4hrs prn pain #10--f/u dentist [facility] Allergies/Adverse Reactions: Allergies promethazine [From Phenergan] Adverse Reaction (Verified 01/02/17 22:18) hallucinations Home Medications: Ambulatory Orders Aspirin [Low Dose Aspirin Ec] 81 mg PO DAILY 08/31/16 Disposition Discussed With: Patient
[2017-06-04 21:29] VITALS: BP 165/89; TEMP 97.8; BMI 46.3
== END 2017-06-04 21:31 | disposition home or self-care (01) ==
LOC: ED 21:15
DX: K04.7 Periapical abscess without sinus (principal)
CPT/HCPCS: 99282

== ENCOUNTER 2017-07-15 00:12 | Emergency (ER) ==
[2017-07-15 00:25] VITALS: BP 177/86; TEMP 98.8; BMI 45.3
[2017-07-15] MEDS ORDERED: SODIUM CHLORIDE 1,000 ML IV STA (00:35)
[2017-07-15] MEDS ORDERED: DILAUDID 1 MG/ML SYRINGE IVP STA (00:36)
[2017-07-15] MEDS ORDERED: ZOFRAN 4 MG/2 ML IVP STA (00:36)
--- NOTE | 2017-07-15 00:40 | ED.PDOC ---
General ED Provider: Dr. SALINAS PASCUAL-ER Chief Complaint: Back Pain Stated Complaint: my back hurts and i think i have another stone Time Seen by Physician: 00:15 Mode of Arrival: Walk-In Information Source: Patient Exam Limitations: No limitations Primary Care Provider: ANNALISE MICHAEL Nursing and Triage Documentation Reviewed and Agree: Yes Reviewed sepsis parameters & appropriate labs ordered?: Yes System Inflammatory Response Syndrome: Not Applicable Sepsis Protocol: For patient's 13 years and over: Temp is 96.8 and below OR 101 and greater Pulse >90 BPM Resp >20/minute Acutely Altered Mental Status Are patient's symptoms suggestive of a new infection, such as: -Pneumonia -Skin, Soft Tissue -Endocarditis -UTI -Bone, Joint Infection -Implantable Device -Acute Abdominal Infection -Wound Infection -Meningitis -Blood Stream Catheter Infection -Unknown Complaint Exam - Complaint/Exam Patient Complains of: Reports: Dysuria Onset/Duration: several hours Symptoms Are: Still present Timing: Constant Initial Severity: Mild Current Severity: Moderate Location of Pain: Reports: Right, Flank Character: Reports: Dull, Cramping Alleviating: Reports: None Associated Signs and Symptoms: Reports: Back pain, Hematuria, Dysuria. Denies: Diaphoresis, Fever, Constipation, Blood in stool, Rectal pain, Appetite change, Nausea, Vomiting Ovarian Torsion Risk Factors: Reports: Hysterectomy Surgical Obstruction Risk Factors: Reports: None RH Status: Unknown Related Surgical History: Reports: Lithotripsy, Cystoscopy, Ureteral Stents Differential Diagnoses: Ureteral Stone, UTI Review of Systems - Review Of Systems Constitutional: Reports: No symptoms Eyes: Reports: No symptoms Ears, Nose, Mouth, Throat: Reports: No symptoms Respiratory: Reports: No symptoms Cardiac: Reports: No symptoms GI: Reports: Abdominal pain, Nausea : Reports: Flank pain Musculoskeletal: Reports: No symptoms Skin: Reports: No symptoms Neurological: Reports: No symptoms Endocrine: Reports: No symptoms Hematologic/Lymphatic: Reports: No symptoms All Other Systems: Reviewed and Negative Past Medical History - Past Medical History Previously Healthy: Yes Endocrine: Reports: None Cardiovascular: Reports: None Respiratory: Reports: None Hematological: Reports: None Gastrointestinal: Reports: None Genitourinary: Reports: None Neuro/Psych: Reports: None Musculoskeletal: Reports: None Cancer: Reports: None Last Menstrual Period: PT HAS HAD A HYSTERECTOMY - Surgical History General Surgical History: Reports: Hysterectomy - Family History Family History: Reports: Unknown - Social History Smoking Status: Never smoker Hx Substance Use: No Alcohol Screening: None Lives: With family - Immunizations Tetanus Shot up to Date: Yes Physical Exam - Physical Exam Appearance: Well-appearing, No pain distress, Well-nourished Eyes: HONEY, EOMI, Conjunctiva clear ENT: Ears normal, Nose normal, Oropharynx normal Neck: Supple Respiratory: Airway patent, Breath sounds clear, Breath sounds equal, Respirations nonlabored Cardiovascular: RRR, Pulses normal, No rub, No murmur GI/: Soft, Nontender, No masses, Bowel sounds normal, No Organomegaly Musculoskeletal: Normal strength, ROM intact, No edema, No calf tenderness Skin: Warm, Dry, Normal color Neurological: Sensation intact, Motor intact, Reflexes intact, Cranial nerves intact, Alert, Oriented Psychiatric: Affect appropriate, Mood appropriate, Anxious Interpretation - Radiology Interpretation Radiology Interpretation By: Radiologist Radiology Results: Positive Exam Interpreted: CT Scan Critical Care Note - Critical Care Note Total Time (mins): 0 Course - Course Hematology/Chemistry: 07/15/17 00:49 07/15/17 00:49 Orders, Labs, Meds: Lab Review 07/15/17 07/15/17 07/15/17 00:30 00:49 00:49 WBC 12.64 H RBC 3.96 L Hgb 11.8 L Hct 34.3 L MCV 86.6 MCH 29.8 MCHC 34.4 RDW Coeff of [place] 13.0 Plt Count 240 Immature Gran % (Auto) 0.6 Neut % (Auto) 54.7 Lymph % (Auto) 36.6 [place] % (Auto) 5.9 Eos % (Auto) 1.7 Baso % (Auto) 0.5 Immature Gran # (Auto) 0.1 Neut # 6.9 Lymph # 4.[address] [place] # 0.7 Eos # 0.2 Baso # 0.1 Sodium 141 Potassium 4.1 Chloride 108 H Carbon Dioxide 23 Anion Gap 14.1 BUN 10 Creatinine 0.62 Estimated GFR (MDRD) 110.00 BUN/Creatinine Ratio 16.12 Glucose 131 H Calcium 9.1 Total Bilirubin 0.6 AST 17 ALT 17 Alkaline Phosphatase 49 Total Protein 6.9 Albumin 3.3 L Globulin 3.6 Albumin/Globulin Ratio 0.92 Urine Color Yellow Urine Clarity Clear Urine pH 5.5 Ur Specific [place] >=1.030 Urine Protein Negative Urine Glucose (UA) Negative Urine Ketones Negative Urine Blood Trace-intact Urine Nitrite Negative Urine Bilirubin Negative Urine Urobilinogen 0.2 Ur Leukocyte Esterase Negative Urine Microscopic RBC 2-5 Urine Microscopic WBC 2-5 Ur Squamous Epith Cells 20-30 Urine Bacteria 1+ Urine Mucus 1+ Orders Category Date Time Status IV [ED IV/MEDIPORT/POWERPORT] .ONCE EMERGENCY 07/15/17 00:35 Active CBC W/ AUTO DIFF Stat LAB 07/15/17 00:49 Completed CMP [COMPREHENSIVE METABOLIC PANEL] Stat LAB 07/15/17 00:49 Completed URINALYSIS C & S IF INDICATED Stat LAB 07/15/17 00:30 Completed URINE CULTURE Stat LAB 07/15/17 00:30 Received 0.9 % Sodium Chloride [Saline Flush] MEDS 07/15/17 00:35 Ordered 1 syr IVF PRN PRN Hydromorphone HCl [Dilaudid 1 mg/ml Syringe] MEDS 07/15/17 00:36 Discontinued 1 mg IVP ONCE STA Ketorolac Tromethamine [Toradol] MEDS 07/15/17 01:37 Discontinued 30 mg .ROUTE .STK-MED ONE Ketorolac Tromethamine [Toradol] MEDS 07/15/17 01:36 Discontinued 30 mg IVP ONCE STA Ketorolac Tromethamine [Toradol] MEDS 07/15/17 01:39 Discontinued 60 mg .ROUTE .STK-MED ONE Ondansetron HCl/Pf [Zofran 4 mg/2 ml] MEDS 07/15/17 00:36 Discontinued 4 mg IVP ONCE STA Sodium Chloride 0.9% [Sodium Chloride] 1,000 ml MEDS 07/15/17 00:35 Active IV 100 mls/hr CT ABD/PEL WO RENAL STONE PROT Stat RADS 07/15/17 02:01 Completed Medications Generic Name Dose Route Start Last Admin Trade Name Freq PRN Reason Stop Dose Admin Sodium Chloride 1,000 mls @ 100 mls/hr 07/15/17 00:35 07/15/17 00:52 Sodium Chloride IV 07/15/17 10:34 100 mls/hr .Q10H STA Administration Sodium Chloride 1 syr 07/15/17 00:35 Saline Flush IVF PRN PRN To flush IV Discontinued Medications Generic Name Dose Route Start Last Admin Trade Name Freq PRN Reason Stop Dose Admin Hydromorphone HCl 1 mg 07/15/17 00:36 07/15/17 00:52 Dilaudid 1 Mg/Ml Syringe IVP 07/15/17 00:37 1 mg ONCE STA Administration Ketorolac Tromethamine 30 mg 07/15/17 01:36 07/15/17 01:46 Toradol IVP 07/15/17 01:37 30 mg ONCE STA Administration Ondansetron HCl 4 mg 07/15/17 00:36 07/15/17 00:51 Zofran 4 Mg/2 Ml IVP 07/15/17 00:37 4 mg ONCE STA Administration Vital Signs: Temp Pulse Resp BP Pulse Ox 07/15/17 00:12 98.8 F 70 20 177/86 H 98 Departure - Departure Time of Disposition: 02:56 Disposition: HOME SELF-CARE Discharge Problem: Nephrolithiasis UTI (urinary tract infection) Qualifiers: Urinary tract infection type: site unspecified Hematuria presence: without hematuria Qualified Code(s): N39.0 - Urinary tract infection, site not specified Instructions: Kidney Stones (ED) Condition: Good Pt referred to PMD for follow-up: Yes IPMP verified?: No Additional Instructions: cipro 500mg bid x 7days..strain all urine--norco 7.5mg q 4hrs prn pain #10--f/u with your urologist or pcp Allergies/Adverse Reactions: Allergies promethazine [From Phenergan] Adverse Reaction (Verified 07/15/17 00:21) hallucinations Disposition Discussed With: Patient, Family
[2017-07-15] MEDS ORDERED: TORADOL IVP STA (01:36)
[2017-07-15] MEDS ORDERED: TORADOL ONE ×2 (01:37→01:39)
--- NOTE | 2017-07-15 02:47 | CT ---
EXAM: CT abdomen pelvis without intravenous contrast 07/15/2017. Sagittal and coronal reformatted i mages obtained HISTORY: Right flank pain COMPARISON: 01/02/2017 FINDINGS: The liver, adrenal glands and kidneys show no acute abnormality. There is no urinary obst ruction. Solitary 2 mm stone at the superior pole of the left kidney. The spleen and pancreas show no acute abnormality. There is no bowel obstruction. Normal appendix. Unremarkable urinary bladder. No free air or free fluid. Small fat containing umbilical hernia appears stable. No acute osseous abnormality. Chronic degenera tive disc disease. IMPRESSION: 1. No hydronephrosis. 2 mm nonobstructive left nephrolithiasis. 2. No bowel obstruction. Normal appendix. 3. No acute inflammatory process identified within the limitation of a noncontrast enhanced examinat ion.
== END 2017-07-15 03:02 | disposition home or self-care (01) ==
LOC: ED 00:12
DX: N20.0 Calculus of kidney (principal); N39.0 Urinary tract infection, site not specified
CPT/HCPCS: 36415; 74176; 80053; 81001; 85025; 87086; 96361; 96374; 96375; 99284

== ENCOUNTER 2017-12-03 11:07 | Emergency (ER) ==
[2017-12-03 11:17] VITALS: BP 137/97; TEMP 98; BMI 41.5
--- NOTE | 2017-12-03 11:20 | ED.PDOC ---
General ED Provider: Dr. THIERRY OSBORN Chief Complaint: Rash Stated Complaint: Patient states she started having a rash one week ago. She was seen in the Clinic and given steroids which she has been taking. Has not improved. Has also been taking benadryl. Rash is on the Truck upper extremities and neck. They are itchy. Time Seen by Physician: 11:13 Information Source: Patient, Family Exam Limitations: No limitations Primary Care Provider: ANNALISE MICHAEL Nursing and Triage Documentation Reviewed and Agree: Yes Does patient meet sepsis criteria?: No System Inflammatory Response Syndrome: Not Applicable Sepsis Protocol: For patient's 13 years and over: Temp is 96.8 and below OR 101 and greater Pulse >90 BPM Resp >20/minute Acutely Altered Mental Status Are patient's symptoms suggestive of a new infection, such as: -Pneumonia -Skin, Soft Tissue -Endocarditis -UTI -Bone, Joint Infection -Implantable Device -Acute Abdominal Infection -Wound Infection -Meningitis -Blood Stream Catheter Infection -Unknown Skin Complaint Exam - Skin Rash/Itching Complaint/Exam Onset/Duration: 1 WEEK Symptoms Are: Still present Initial Severity: Severe Current Severity: Moderate Location: truck, upper extremites, neck, thighs Potential Exposures: Reports: Unknown Prior Treatment: po steroids. Alleviating: Reports: None Associated Signs and Symptoms: Denies: Difficulty breathing, Fever, Chills Skin Findings: Present: Maculae, Purpura Differential Diagnoses: Allergic Reaction, Contact Dermatitis, Viral Exanthema Review of Systems - Review Of Systems Constitutional: Reports: No symptoms Eyes: Reports: No symptoms Ears, Nose, Mouth, Throat: Reports: No symptoms Respiratory: Reports: No symptoms Cardiac: Reports: No symptoms GI: Reports: No symptoms : Reports: No symptoms Musculoskeletal: Reports: No symptoms Skin: Reports: Rash Neurological: Reports: Anxiety Endocrine: Reports: No symptoms Hematologic/Lymphatic: Reports: No symptoms All Other Systems: Reviewed and Negative Past Medical History - Past Medical History Previously Healthy: Yes Endocrine: Reports: None Cardiovascular: Reports: Hypertension Respiratory: Reports: None Hematological: Reports: None Gastrointestinal: Reports: None Genitourinary: Reports: Kidney stones Neuro/Psych: Reports: None Musculoskeletal: Reports: None Cancer: Reports: None Other Pertinent Past Medical History: - Surgical History General Surgical History: Reports: Hysterectomy, Cholecystectomy, Other (KIDNEY STONE REMOVED, ) - Family History Family History: Reports: Unknown - Social History Smoking Status: Never smoker Hx Substance Use: No Alcohol Screening: None Physical Exam - Physical Exam Appearance: Ill-appearing Ill-appearing: Moderate Neck: Supple Respiratory: Airway patent, Breath sounds clear, Breath sounds equal, Respirations nonlabored Cardiovascular: RRR, Pulses normal, No rub, No murmur Musculoskeletal: Normal strength, ROM intact, No edema, No calf tenderness Skin: Warm, Dry Neurological: Sensation intact, Motor intact, Alert, Oriented Psychiatric: Anxious Critical Care Note - Critical Care Note Total Time (mins): 0 Course - Course Orders, Labs, Meds: Orders Category Date Time Status Dexamethasone 4 mg/ml Inj [Decadron 4 mg/ml Sdv] MEDS 12/03/17 11:39 Discontinued 8 mg IM ONCE STA Epinephrine Amp [Epinephrine 1:1,000 Amp] MEDS 12/03/17 11:49 Discontinued 1 mg .ROUTE .STK-MED ONE Epinephrine [Adrenalin 1:1000 Sdv] MEDS 12/03/17 11:39 Discontinued 0.4 mg IM ONCE STA Loratadine [Claritin] MEDS 12/03/17 11:39 Discontinued 10 mg PO ONCE STA Medications Discontinued Medications Generic Name Dose Route Start Last Admin Trade Name Freq PRN Reason Stop Dose Admin Dexamethasone Sodium Phosphate 8 mg 12/03/17 11:39 12/03/17 12:00 Decadron 4 Mg/Ml Sdv IM 12/03/17 11:40 8 mg ONCE STA Administration Epinephrine HCl 0.4 mg 12/03/17 11:39 12/03/17 11:57 Adrenalin 1:1000 Sdv IM 12/03/17 11:40 0.4 mg ONCE STA Administration Loratadine 10 mg 12/03/17 11:39 12/03/17 12:02 Claritin PO 12/03/17 11:40 10 mg ONCE STA Administration Vital Signs: Temp Pulse Resp BP Pulse Ox 12/03/17 11:09 98.0 F 101 H 20 137/97 H 97 Departure - Departure Time of Disposition: 13:07 Disposition: HOME SELF-CARE Discharge Problem: Pruritic rash, Viral exanthem, unspecified Instructions: Viral Exanthem (ED) Condition: Stable Pt referred to PMD for follow-up: Yes IPMP verified?: No Additional Instructions: Continue Steroids Continue over the counter Benadryl and Claritin Follow up with PCP in 3 days. Prescriptions: Prednisone 20 mg PO DAILYWM #5 tablet Allergies/Adverse Reactions: Allergies promethazine [From Phenergan] Adverse Reaction (Verified 07/15/17 00:21) hallucinations Home Medications: Ambulatory Orders Prednisone 20 mg PO DAILYWM #5 tablet 12/03/17 Disposition Discussed With: Patient
[2017-12-03] MEDS ORDERED: CLARITIN PO STA (11:39)
[2017-12-03] MEDS ORDERED: DECADRON 4 MG/ML SDV IM STA (11:39)
[2017-12-03] MEDS ORDERED: ADRENALIN 1:1000 SDV IM STA (11:39)
[2017-12-03] MEDS ORDERED: EPINEPHRINE 1:1,000 AMP ONE (11:49)
== END 2017-12-03 13:21 | disposition home or self-care (01) ==
LOC: ED 11:07
DX: B09 Unspecified viral infection characterized by skin and mucous membrane lesions (principal)
CPT/HCPCS: 96372; 99282

== ENCOUNTER 2017-12-08 14:48 | Outpatient (CLI) | END 2017-12-08 14:49 | disposition home or self-care (01) | LOC: RHC-LAB 14:48 | PROVIDERS: ATTEND Emergency Medicine | DX: I10 Essential (primary) hypertension (principal); E66.9 Obesity, unspecified | CPT/HCPCS: 36415; 80053; 85025 ==

== ENCOUNTER 2018-07-17 14:14 | Emergency (ER) | payer MEDICAID, OTHER ==
[2018-07-17 14:15] VITALS: BMI 41.5
[2018-07-17 14:19] VITALS: BP 159/88; TEMP 99.5
--- NOTE | 2018-07-17 15:09 | US ---
EXAM: Right lower extremity venous Doppler History: Right lower extremity pain. Technique: Multiple sonographic images through the right lower extremity were obtained. Color duple x Doppler was used to interrogate vascular flow. Findings: The right common femoral, greater saphenous, profunda, superficial femoral, popliteal, per [place], posterior tibial and anterior tibial veins demonstrate spontaneous flow with normal compressio n and normal augmentation. Impression: No sonographic evidence for deep venous thrombosis
--- NOTE | 2018-07-17 17:18 | ED.PDOC ---
General ED Provider: Dr. VIKY MADERA Chief Complaint: Extremity Swelling/Pain Stated Complaint: RIGHT LOWER LEG EDEMA AND PAIN Time Seen by Physician: 14:15 (SEEN WITH WILBERT AT ALL TIMES NO TRAUMA REPORTED .LEFT LEG IS FINE ) Mode of Arrival: Walk-In Information Source: Patient Exam Limitations: No limitations Primary Care Provider: ANNALISE MICHAEL Nursing and Triage Documentation Reviewed and Agree: Yes Does patient meet sepsis criteria?: No System Inflammatory Response Syndrome: Not Applicable Sepsis Protocol: For patient's 13 years and over: Temp is 96.8 and below OR 101 and greater Pulse >90 BPM Resp >20/minute Acutely Altered Mental Status Are patient's symptoms suggestive of a new infection, such as: -Pneumonia -Skin, Soft Tissue -Endocarditis -UTI -Bone, Joint Infection -Implantable Device -Acute Abdominal Infection -Wound Infection -Meningitis -Blood Stream Catheter Infection -Unknown Musculoskeletal Complaint Exam - Lower Extremity Complaint/Exam Location of Pain: Reports: Right, Leg Mechanism of Injury: Reports: No known trauma, Other (2 DAYS AGO PAIN ) Onset/Duration: 2 DAYS Symptoms Are: Still present Onset of Pain: Reports: Days Initial Severity: Mild Current Severity: Mild Location: Reports: Discrete Character: Reports: Aching Alleviating: Reports: Rest Aggravating: Reports: Movement Able to Bear Weight: Yes Associated Signs and Symptoms: Reports: Swelling. Denies: Redness, Bruising, Fever, Weakness, Numbness, Tingling DVT Risk Factors: Reports: None Septic Arthritis Risk Factors: Reports: None Related Surgical History: Reports: None NV Bundle Intact Distal to Injury: No Differential Diagnoses: Strain, Sprain, Other (DVT) Review of Systems - Review Of Systems Constitutional: Reports: No symptoms Eyes: Reports: No symptoms Ears, Nose, Mouth, Throat: Reports: No symptoms Respiratory: Reports: No symptoms Cardiac: Reports: No symptoms GI: Reports: No symptoms : Reports: No symptoms Musculoskeletal: Reports: Other (LEG PAIN) Skin: Reports: No symptoms Neurological: Reports: No symptoms Endocrine: Reports: No symptoms Hematologic/Lymphatic: Reports: No symptoms All Other Systems: Reviewed and Negative Past Medical History - Past Medical History Previously Healthy: Yes Endocrine: Reports: None Cardiovascular: Reports: Hypertension Respiratory: Reports: None Hematological: Reports: None Gastrointestinal: Reports: None Genitourinary: Reports: Kidney stones Neuro/Psych: Reports: None Musculoskeletal: Reports: None Cancer: Reports: None Last Menstrual Period: n/a Other Pertinent Past Medical History: - Surgical History General Surgical History: Reports: Hysterectomy, Cholecystectomy, Other (KIDNEY STONE REMOVED, ) - Family History Family History: Reports: Unknown - Social History Smoking Status: Never smoker Hx Substance Use: No Alcohol Screening: None Physical Exam - Physical Exam Appearance: Well-appearing, No pain distress, Well-nourished Eyes: HONEY, EOMI, Conjunctiva clear ENT: Ears normal, Nose normal, Oropharynx normal Respiratory: Airway patent, Breath sounds clear, Breath sounds equal, Respirations nonlabored Cardiovascular: RRR, Pulses normal, No rub, No murmur GI/: Soft, Nontender, No masses, Bowel sounds normal, No Organomegaly Musculoskeletal: Normal strength, ROM intact, No edema, No calf tenderness Skin: Warm, Dry, Normal color Neurological: Sensation intact, Motor intact, Reflexes intact, Cranial nerves intact, Alert, Oriented Psychiatric: Affect appropriate, Mood appropriate Interpretation - Radiology Interpretation Radiology Interpretation By: Radiologist Radiology Results: Negative (DVT) Critical Care Note - Critical Care Note Total Time (mins): 0 Course - Course Orders, Labs, Meds: Orders Category Date Time Status U/S VENOUS SCAN RT LEG Stat RADS 07/17/18 14:37 Completed Vital Signs: Temp Pulse Resp BP Pulse Ox 07/17/18 14:15 99.5 F 76 20 159/88 H 97 Departure - Departure Time of Disposition: 17:18 Disposition: HOME SELF-CARE Discharge Problem: Leg pain, right Instructions: Leg Pain (ED) Condition: Good Pt referred to PMD for follow-up: Yes IPMP verified?: No Additional Instructions: Please call your Family Physician as soon as possible to schedule a follow-up appointment. Allergies/Adverse Reactions: Allergies promethazine [From Phenergan] Adverse Reaction (Verified 07/17/18 14:19) hallucinations
== END 2018-07-17 17:33 | disposition home or self-care (01) ==
LOC: ED 14:14
DX: M79.604 Pain in right leg (principal); R60.0 Localized edema; I10 Essential (primary) hypertension
CPT/HCPCS: 99283

== ENCOUNTER 2018-09-19 11:03 | Outpatient (CLI) | END 2018-09-19 11:04 | disposition home or self-care (01) | LOC: RHC-LAB 11:03 | PROVIDERS: ATTEND Nurse Practitioner Family | DX: R30.0 Dysuria (principal) | CPT/HCPCS: 87086 ==